=== PATIENT | female | born 1970 | race Caucasian/White ===

== ENCOUNTER 2016-04-25 02:15 | Emergency (ER) | payer OTHER ==
[~2016-04-25] VITALS: Ht 157.5 cm; Wt 95.0 kg
[~2016-04-25 02:15] MED LIST: AUG875 PO; CLOT21CR7 VAG; CLOT30CR24 TOP; CLOT45CR19 VAG; FLUC150T17 PO; GLIP5TAB13 PO; HYDR-3498 PO; IBUP400T22 PO; LISI20TA11 PO; METF1000 PO; METF500T PO; MTF1000T PO; PROM6.25 PO; ZOF8 PO
[2016-04-25 02:43] VITALS: Ht 157.5 cm; Wt 95.0 kg
--- NOTE | 2016-04-25 04:21 | ERD ---
ER Documentation Chief Complaint Date/Time DATE: 04/25/16 TIME: 04:19 Chief Complaint Blurry vision, HPI Patient is a 45-year-old female with past medical history of diabetes who presents emergency department with complaint of blurry vision. Patient states that she has had blurry vision for "3 days now". She states she occasionally sees spots. Patient denies any acute complete vision loss. Patient states that she did see an elementary reading specialist last week and was prescribed glasses. She states she has not picked up her glasses yet. Patient states "I do not want to wear glasses". Patient states that she is taking her diabetes medication daily. Patient denies any chest pain, shortness of breath, arm pain, diaphoresis, headache, loss of consciousness. Patient denies any nausea, vomiting, abdominal pain. Patient is having some suprapubic tenderness and states that "it is stabbing." Patient denies any pain with urination, frequency or hematuria. Of note patient is currently taking amoxicillin for dental infection. Of note, patient's Accu-Chek was noted to be 297 in triage. ROS All systems reviewed and are negative except as per history of present illness. Medications Home Meds Active Scripts Clotrimazole* (Clotrimazole-7*) Vaginal Cream..g., 1 APPLIC VAG HS for 7 Days, EA Prov:SHANNAN TAYLOR NP 11/04/15 Fluconazole* (Diflucan*) 150 Mg Tablet, 150 MG PO ONCE, #3 TAB Take 1 tablet PO q72 hrs x 3 doses. Prov:SHANNAN TAYLOR NP 11/04/15 Fluconazole* (Diflucan*) 150 Mg Tablet, 150 MG PO ONCE, #2 TAB Prov:MIGUEL ANGEL KEATING PA-C 11/02/15 Lisinopril* (Lisinopril*) 20 Mg Tablet, 20 MG PO DAILY, #30 TAB Prov:LEONCIO ROMANO 07/24/15 Glipizide* (Glipizide*) 5 Mg Tablet, 5 MG PO BID for 30 Days, TAB Prov:CHANCE VARELA MD 07/23/15 Metformin* (Glucophage*) 1,000 Mg Tablet, 1000 MG PO BID, #60 TAB Prov:CHANCE VARELA MD 07/23/15 Clotrimazole* (Clotrimazole-3*) Vaginal Cream..g., 1 APPLIC VAG HS for 7 Days, EA Prov:YAMILA PATEL NP 07/09/15 Clotrimazole* (Clotrimazole* AF) 1% - 30 Gm Cream.gm., 1 APPLIC TOP BID for 7 Days, TUB Prov:YAMILA PATEL NP 07/09/15 Fluconazole* (Diflucan*) 150 Mg Tablet, 150 MG PO ONCE, #1 TAB Prov:YAMILA PATEL NP 07/09/15 Metformin Hcl (Glucophage) 500 Mg Tablet, 500 MG PO BID, #30 TAB 0 Refills Prov:CHRISTOPHE GILMORE PA-C 06/21/15 Ondansetron Hcl* (Zofran* ODT) 8 mg -ODT Tab.disper, 8 MG PO Q6 Y for NAUSEA AND /OR VOMITING, #10 TAB Prov:CARLYLE CARRASCO PA-C 03/10/15 Promethazine w/Codeine* (Phenergan w/Codeine* Syrup) 5 Ml Syrup, 5-10 ML PO Q4H Y for COUGH, #200 ML Prov:CARLYLE CARRASCO PA-C 03/10/15 Amoxicillin-Clavulanate K* (Augmentin*) 875 Mg Tab, 875 MG PO BID for 10 Days, TAB Prov:CARLYLE CARRASCO PA-C 03/10/15 Hydrocodone Bit-Acetaminophen* ([place]*) 5-325 Mg Tab, 1 TAB PO Q6 Y for PAIN, # 20 TAB Prov:YAMILA PATEL NP 01/08/15 Ibuprofen* (Motrin*) 400 Mg Tab, 400 MG PO Q6H Y for PAIN AND OR ELEVATED TEMP, #30 Prov:YAMILA PATEL NP 01/08/15 Reported Medications Glipizide* (Glipizide*) 5 Mg Tablet, 5 MG PO BID, TAB 02/18/14 Lisinopril* (Lisinopril*) 20 Mg Tablet, 20 MG PO DAILY, TAB 12/20/13 Metformin Hcl* (Metformin Hcl*) 1,000 Mg Tablet, 1000 MG PO BID, TAB 07/24/13 Allergies Allergies: Coded Allergies: No Known Allergy (Verified , NONE, 06/21/15) PMhx/Soc Medical and Surgical Hx: pt denies Medical Hx, pt denies Surgical Hx History of Surgery: No Anesthesia Reaction: No Hx Neurological Disorder: No Hx Respiratory Disorders: No Hx Cardiac Disorders: Yes (HTN) Hx Psychiatric Problems: No Hx Miscellaneous Medical Probl: Yes (DM type 2) Hx Alcohol Use: No Hx Substance Use: No Hx Tobacco Use: Yes (1 PACK Q2 DAYS ) Smoking Status: Former smoker FmHx Family History: No diabetes Physical Exam Vitals Vital Signs Date Time Temp Pulse Resp B/P Pulse Ox O2 Delivery O2 Flow Rate FiO2 04/25/16 02:43 97.5 80 18 123/58 97 Physical Exam GENERAL: Well-developed, well-nourished female. Appears in no acute distress. HEAD: Normocephalic, atraumatic. EYES: Pupils are equally reactive bilaterally. EOMs grossly intact. No conjunctival erythema. Fundoscopic exam: Red light reflex present, no fundal hemorrhages. Visual acuity w/ Snellen eye chart: 20/70 OS, 20/70 OD, 20/70 OU ENT: Moist mucous membranes. No uvula deviation. No kissing tonsils. Poor dentition. NECK: Supple. No meningismus. Normal range of motion of the neck. LUNG: Clear to auscultation bilaterally. No rhonchi, wheezing, rales or coarse breath sounds. HEART: Regular rate and rhythm. No murmurs, rubs or gallops. ABDOMEN: No scars, ecchymosis or rashes noted. Soft, nontender, and nondistended. Positive bowel sounds in all four quadrants. No rebound tenderness , no guarding. (-) McBurney's point tenderness. No CVA tenderness. BACK: No midline tenderness. EXTREMITIES: Equal pulses bilaterally. No peripheral clubbing, cyanosis or edema. No unilateral leg swelling. NEUROLOGIC: Alert and oriented x3, cooperative. Mood and affect appropriate to situation. Cranial nerves II through XII are grossly intact. Normal speech. Motor exam: 5/5 strength in upper and lower extremities. Sensory exam: Sensation intact to light touch on all four extremities. Normal speech. Steady gait. SKIN: Normal color. Warm and dry. No rashes or lesions. Results 24 hrs Laboratory Tests Test 04/25/16 02:55 04/25/16 04:28 Bedside Glucose 296mg/dL Bedside Urine Blood Negative Bedside Urine Glucose (UA) 0.50% Bedside Urine Ketones (LAB) Negative Bedside Urine Leukocyte Esterase (L Negative Bedside Urine Nitrite (LAB) Negative Bedside Urine Protein (LAB) Negative Bedside Urine pH (LAB) 6.0 Procedures/MDM MEDICAL DECISION MAKING: Patient is a 45 year old female who presents with blurry vision and suprapubic pain. Patient stated that she recently saw an elementary reading specialist and was prescribed eye glasses, however she does not wish to wear vision correction. Vital signs were reviewed. Patient is afebrile. Patient was not hypoxic. Physical exam findings were negative. Accucheck was 297. Urine was negative. Urine dip was negative for infection or hematuria. At this time, the presentation it most consistent with blurry vision secondary to refractive error. Low suspicion for UTI, pyelonephritis, DKA, hyperosmolar hyperglycemic state, glaucoma, CVA, cataracts. Unable able to rule out diabetic retinopathy. Patient needs to follow up an mail clerk on a regular basis. PRESCRIPTION: DISCHARGE: At this time, patient is stable for discharge and outpatient management. I have instructed the patient to follow-up with his/her primary care physician in 1-2 days. I had a discussion with the patient about the importance of using glasses for vision correction and seeing a mail clerk on regular basis due to diabetes. Glucose control also discussed with the patient. Patient was advised to follow up with her PCP was better management of her blood sugars. I have instructed the patient to promptly return to the ER for any new or worsening symptoms including increased pain, fever, nausea, vomiting, weakness or LOC. The patient and/or family expressed understanding of and agreement with this plan. All questions were answered. Home care instructions were provided. Patients random blood sugar level was elevated (>140), but appears stable without evidence of DKA or end organ failure. I had discussion with the patient about the risk of diabetes. I have advised the patient to follow up with his/her primary care physician for outpatient monitoring and treatment for elevated blood sugar levels in 2-3 days. I have instructed the patient to return to the ER for any new or worsening symptoms including chest pain, shortness of breath, headache, confusion, abdominal pain, nausea, vomiting, weakness or LOC. Departure Diagnosis: Primary Impression: Blurry vision Additional Impressions: Hyperglycemia Refraction error Suprapubic pain Condition: Stable Patient Instructions: Hyperglycemia (High Blood Sugar) Additional Instructions: Call your primary care doctor TOMORROW for an appointment during the next 1-2 days.See the doctor sooner or return here if your condition worsens before your appointment time. Patient was advised to follow-up with her primary care physician for better management of her diabetes. Patient may need a medication change. Patient advised to continue medication as prescribed until seen by primary care physician. She has a prescription for eyeglasses. Patient was advised to obtain her glasses as soon as possible to help with her blurry vision. CHARI HELM PA-C Apr 25, 2016 04:21
[2016-04-25 04:25] LABS: URINE BLOOD (Dip) POC Negative (NEGATIVE)
== END 2016-04-25 05:01 | disposition home or self-care (01) ==
LOC: FTE 02:15
DX: H53.8 Other visual disturbances (principal); E11.65 Type 2 diabetes mellitus with hyperglycemia; H52.6 Other disorders of refraction; R10.30 Lower abdominal pain, unspecified; I10 Essential (primary) hypertension; Z79.84 Long term (current) use of oral hypoglycemic drugs; Z87.891 Personal history of nicotine dependence
CPT/HCPCS: 81003; 82962; Z7502; 99282

== ENCOUNTER 2016-10-23 20:13 | Emergency (ER) | payer OTHER ==
[~2016-10-23] VITALS: Ht 157.5 cm; Wt 93.0 kg
[2016-10-23 20:25] VITALS: Ht 157.5 cm; Wt 93.0 kg
[2016-10-23] MEDS ORDERED: SOD CHLORIDE 0.9% 1,000 ML IV STA (21:09)
--- NOTE | 2016-10-23 21:22 | ERD ---
ER Documentation Chief Complaint Date/Time DATE: 10/23/16 TIME: 21:13 Chief Complaint blurry vision today, Hx: DM. BS: 323 HPI 46-year-old female with a history of type 2 diabetes, and hypertension presents the emergency department for complaints of bilateral blurred vision, body aches , dizziness which she explains as lightheadedness, and feeling off balance since today. 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 She states that she has experienced similar symptoms prior due to her elevated blood glucose level. She states she does not have a primary care physician but goes to [facility] emergency department for refills of her Metformin and blood pressure medication. She states she has not been taking her blood pressure medication regularly. She denies any fever, chills, nausea, vomiting, diarrhea, abdominal pain, chest pain, or shortness of breath. Patient also notes intermittent right wrist pain 1 month. 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 She has not attempted to treat her symptoms as far with any medication. She currently rates her pain as a intermittent throbbing, 6 out of 10 right wrist pain which is worse with movement. She denies any numbness, tingling, or weakness. ROS All systems reviewed and are negative except as per history of present illness. Medications Home Meds Active Scripts Naproxen* (Naprosyn*) 500 Mg Tablet, 500 MG PO BID Y for PAIN AND/OR INFLAMMATION, #30 TAB Prov:ABEL SHAFER PA-C 10/23/16 Clotrimazole* (Clotrimazole-7*) Vaginal Cream..g., 1 APPLIC VAG HS for 7 Days, EA Prov:SHANNAN TAYLOR NP 11/04/15 Fluconazole* (Diflucan*) 150 Mg Tablet, 150 MG PO ONCE, #3 TAB Take 1 tablet PO q72 hrs x 3 doses. Prov:SHANNAN TAYLOR NP 11/04/15 Fluconazole* (Diflucan*) 150 Mg Tablet, 150 MG PO ONCE, #2 TAB Prov:MIGUEL ANGEL KEATING PA-C 11/02/15 Lisinopril* (Lisinopril*) 20 Mg Tablet, 20 MG PO DAILY, #30 TAB Prov:LEONCIO ROMANO/19/16 Glipizide* (Glipizide*) 5 Mg Tablet, 5 MG PO BID for 30 Days, TAB Prov:CHANCE VARELA MD 07/23/15 Metformin* (Glucophage*) 1,000 Mg Tablet, 1000 MG PO BID, #60 TAB Prov:CHANCE VARELA MD 07/23/15 Clotrimazole* (Clotrimazole-3*) Vaginal Cream..g., 1 APPLIC VAG HS for 7 Days, EA Prov:YAMILA PATEL NP 07/09/15 Clotrimazole* (Clotrimazole* AF) 1% - 30 Gm Cream.gm., 1 APPLIC TOP BID for 7 Days, TUB Prov:YAMILA PATEL NP 07/09/15 Fluconazole* (Diflucan*) 150 Mg Tablet, 150 MG PO ONCE, #1 TAB Prov:YAMILA PATEL NP 07/09/15 Metformin Hcl (Glucophage) 500 Mg Tablet, 500 MG PO BID, #30 TAB 0 Refills Prov:CHRISTOPHE GILMORE PA-C 06/21/15 Ondansetron Hcl* (Zofran* ODT) 8 mg -ODT Tab.disper, 8 MG PO Q6 Y for NAUSEA AND /OR VOMITING, #10 TAB Prov:CARLYLE CARRASCO PA-C 03/10/15 Promethazine w/Codeine* (Phenergan w/Codeine* Syrup) 5 Ml Syrup, 5-10 ML PO Q4H Y for COUGH, #200 ML Prov:CARLYLE CARRASCO PA-C 03/10/15 Amoxicillin-Clavulanate K* (Augmentin*) 875 Mg Tab, 875 MG PO BID for 10 Days, TAB Prov:CARLYLE CARRASCO PA-C 03/10/15 Hydrocodone Bit-Acetaminophen* ([place]*) 5-325 Mg Tab, 1 TAB PO Q6 Y for PAIN, # 20 TAB Prov:YAMILA PATEL NP 01/08/15 Ibuprofen* (Motrin*) 400 Mg Tab, 400 MG PO Q6H Y for PAIN AND OR ELEVATED TEMP, #30 Prov:YAMILA PATEL CLEMENT TCampbell FIELDS 01/08/15 Reported Medications Glipizide* (Glipizide*) 5 Mg Tablet, 5 MG PO BID, TAB 02/18/14 Lisinopril* (Lisinopril*) 20 Mg Tablet, 20 MG PO DAILY, TAB 12/20/13 Metformin Hcl* (Metformin Hcl*) 1,000 Mg Tablet, 1000 MG PO BID, TAB 07/24/13 Allergies Allergies: Coded Allergies: No Known Allergy (Verified , NONE, 06/21/15) PMhx/Soc History of Surgery: No Anesthesia Reaction: No Hx Neurological Disorder: No Hx Respiratory Disorders: No Hx Cardiac Disorders: Yes (HTN) Hx Psychiatric Problems: No Hx Miscellaneous Medical Probl: Yes (DM type 2) Hx Alcohol Use: No Hx Substance Use: No Hx Tobacco Use: Yes (1 PACK Q2 DAYS ) Smoking Status: Smoker,current status unk Physical Exam Vitals Vital Signs Date Time Temp Pulse Resp B/P Pulse Ox O2 Delivery O2 Flow Rate FiO2 10/23/16 20:25 97.2 90 20 130/84 95 Physical Exam Const: Well-developed, well-nourished, in mild distress Head: Atraumatic Eyes: Normal Conjunctiva, no discharge or evidence of trauma. EOMI, PERRLA ENT: Normal External Ears, Nose and Mouth. Posterior pharynx without erythema or swelling. Neck: Full range of motion..~ No meningismus. Resp: Clear to auscultation bilaterally Cardio: Regular rate and rhythm, no murmurs Abd: Soft, non tender, non distended. Normal bowel sounds Skin: No petechiae or rashes Back: No midline or flank tenderness Ext: Right wristp-no erythema, ecchymosis, or surface trauma. Patient has full range of motion at right wrist and elbow. Mild diffuse tenderness of the wrist. Negative scaphoid tenderness. Patient with good blood perfusion. Brisk capillary refill. Radial, median, ulnar motor function intact. 2 point discrimination intact on radial and ulnar aspect of all 5 fingers. Patient with good investigative assistant strength however notes pain at wrist. cyanosis, or edema Neur: Awake and alert. Cranial nerves II through XII intact. Finger to nose intact. No pronator drift. EOMI. PERRLA. Psych: Normal Mood and Affect Result Diagram: 10/23/16212310/23/162123 Results 24 hrs Laboratory Tests Test 10/23/16 20:23 10/23/16 21:24 10/23/16 21:58 10/23/16 22:43 Bedside Glucose 323mg/dL 242mg/dL 233mg/dL White Blood Count 7.910^3/ul Red Blood Count 4.8110^6/ul Hemoglobin 13.9g/dl Hematocrit 39.6% Mean Corpuscular Volume 82.3fl Mean Corpuscular Hemoglobin 28.9pg Mean Corpuscular Hemoglobin Concent 35.1g/dl Red Cell Distribution Width 12.1% Platelet Count 94178^3/UL Mean Platelet Volume 11.6fl Neutrophils % 52.4% Lymphocytes % 37.8% Monocytes % 7.1% Eosinophils % 1.8% Basophils % 0.5% Nucleated Red Blood Cells % 0.0/100WBC Neutrophils # (Manual) 410^3/ul Lymphocytes # 3.010^3/ul Monocytes # 0.610^3/ul Eosinophils # 0.110^3/ul Basophils # 0.010^3/ul Nucleated Red Blood Cells # 0.010^3/ul Urine Color RED Urine Clarity CLOUDY Urine pH 6.0 Urine Specific [place] 1.041 Urine Ketones TRACEmg/dL Urine Nitrite NEGATIVEmg/dL Urine Bilirubin NEGATIVEmg/dL Urine Urobilinogen NEGATIVEmg/dL Urine Leukocyte Esterase NEGATIVELeu/ul Urine Microscopic RBC > 182/HPF Urine Microscopic WBC 28/HPF Urine Bacteria FEW/HPF Urine Hemoglobin 3+mg/dL Urine Glucose 3+mg/dL Urine Total Protein 2+mg/dl Sodium Level 135mmol/L Potassium Level 3.8mmol/L Chloride Level 96mmol/L Carbon Dioxide Level 26mmol/L Anion Gap 17 Blood Urea Nitrogen 15mg/dl Creatinine 0.64mg/dl Glucose Level 272mg/dl Calcium Level 9.2mg/dl Phosphorus Level 4.9mg/dl Magnesium Level 1.5mg/dl Total Bilirubin 0.2mg/dl Direct Bilirubin 0.00mg/dl Indirect Bilirubin 0.2mg/dl Aspartate Amino Transf (AST/SGOT) 26IU/L Alanine Aminotransferase (ALT/SGPT) 46IU/L Alkaline Phosphatase 105IU/L Troponin I < 0.012ng/ml Total Protein 7.4g/dl Albumin 4.3g/dl Globulin 3.10g/dl Albumin/Globulin Ratio 1.38 Lipase 110U/L Test 10/23/16 23:58 Bedside Glucose 209mg/dL Current Medications Medications (Trade) Dose Ordered Sig/Chava Route PRN Reason Start Time Stop Time Status Last Admin Dose Admin Sodium Chloride 1,000 ml @ 1,000 mls/hr Q1H STAT IV 10/23/16 21:09 10/23/16 22:08 DC 10/23/16 21:23 Sodium Chloride (NS) 1,000 ml @ 1,000 mls/hr Q1H ONCE IV 10/23/16 22:30 10/23/16 23:29 DC 10/23/16 22:25 Procedures/MDM This is a 46-year-old female with history of hypertension and type 2 diabetes who presents the emergency department for complaints of bilateral blurred vision , body aches, lightheadedness and feeling off balance since today. Patient states she is compliant with her metformin but does not take her blood pressure medication. Upon arrival patient's blood glucose was measured at 323. Patient reports similar prior symptoms with elevated blood glucose. Upon arrival, patient well-appearing, and in no acute distress. Vital signs reviewed. Patient afebrile, not tachycardic, normotensive and non-hypoxic. She states she does not have a primary care physician but instead goes to [facility] emergency department to retrieve refills of her diabetes and blood pressure medication. 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 Physical exam without any evidence of swelling, trauma, increased warmth, decreased range of motion, or neurovascular compromise. 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 I will be prescribing the patient with anti-inflammatories as well as placing her in a Velcro wrist splint for comfort. Patient to follow-up with patient access specialist and occupational therapy if symptoms persist. Resources provided. Physical exam overall unremarkable CBC showed no evidence of systemic infection or severe anemia. CMP showed no evidence of electrolyte abnormalities, severe acidosis, alkalosis , renal failure, or liver disease. Bicarb within normal limits. Lipase showed no evidence of acute pancreatitis. Magnesium and phosphorus within normal limits. Serum ketones negative. UA showed evidence of hematuria, bacteremia, leukocyte esterase, and trace ketones. Patient will receive antibiotics for suspected urinary tract infection. Urine test was negative. Troponin negative EKG: Interpreted by Dr. Cricket Gallegos Rate/Rhythm: Normal Sinus Rhythm QRS, ST, T-waves: No changes consistent w/ acute ischemia Impression: No evidence of ischemia or arrhythmia Patient received a bolus of fluids immediately after being seen in the emergency department. Upon recheck of her blood glucose fingerstick measured 242. Patient received an additional bolus of fluids. Prior to arrival patient' s blood sugar retract and measured at 209. Patient reported feeling significantly better after administration of the IV fluids. She stated she felt safe for discharge. At this time hospital admission is not warranted as patient does not appear to be in diabetic ketoacidosis and blood sugar was well controlled with fluids while in the emergency department. Patient overall well-appearing and reported improvement of symptoms after receiving 2 L of fluids. Patient neurologically intact. Low suspicion for significant electrolyte imbalance, ketoacidosis, acute coronary syndrome, stroke, severe systemic illness, or sepsis. Low suspicion for acute coronary syndrome, dysrhythmia, or stroke. Based on patient's history of present illness and physical examination the decision was made to discharge. The patient was re-evaluated after ED treatment and stabilizing measures, and symptoms have improved. There is no evidence of life threatening injuries or illnesses at this time. On re-examination, patient resting in no distress, stable vital signs, reports feeling better and safe for discharge with outpatient follow up with PMD in 1-2 days. Patient given return precautions. ABEL SHAFER PA-C Oct 23, 2016 21:22
[2016-10-23 21:34] LABS: BASOPHILS % 0.5 % (0.0-2.0); EOSINOPHILS # 0.1 10^3/ul (0.0-0.5); EOSINOPHILS % 1.8 % (0.0-7.0); HEMATOCRIT 39.6 % (37.0-47.0); HEMOGLOBIN 13.9 g/dl (12.0-16.0); LYMPHOCYTES % 37.8 % (15.0-51.0); MEAN CORPUSCULAR HEMOGLOBIN 28.9 pg (29.0-33.0); MEAN CORPUSCULAR HGB CONC 35.1 g/dl (32.0-37.0); MEAN CORPUSCULAR VOLUME 82.3 fl (82.0-101.0); MEAN PLATELET VOLUME 11.6 fl (7.4-10.4); MONOCYTE # 0.6 10^3/ul (0.3-0.9); MONOCYTES % 7.1 % (0.0-11.0); NEUTROPHILS % 52.4 % (39.0-77.0); PLATELET COUNT 198 10^3/UL (140-415); RED BLOOD COUNT 4.81 10^6/ul (4.20-5.40); RED CELL DISTRIBUTION WIDTH 12.1 % (11.5-14.5); WHITE BLOOD COUNT 7.9 10^3/ul (4.8-10.8)
[2016-10-23 22:00] LABS: ALANINE AMINOTRANSFERASE 46 IU/L (13-69); ALBUMIN 4.3 g/dl (3.3-4.9); ALBUMIN/GLOBULIN RATIO 1.38; ALKALINE PHOSPHATASE 105 IU/L (42-121); ANION GAP 17 (8-16); ASPARTATE AMINO TRANSFERASE 26 IU/L (15-46); BILIRUBIN,INDIRECT 0.2 mg/dl (0-1.1); BILIRUBIN,TOTAL 0.2 mg/dl (0.2-1.3); BLOOD UREA NITROGEN 15 mg/dl (7-20); CALCIUM 9.2 mg/dl (8.4-10.2); CARBON DIOXIDE 26 mmol/L (21-31); CHLORIDE 96 mmol/L (97-110); CREATININE 0.64 mg/dl (0.44-1.00); GLUCOSE 272 mg/dl (70-220); MAGNESIUM 1.5 mg/dl (1.7-2.5); PHOSPHORUS 4.9 mg/dl (2.5-4.9); POTASSIUM 3.8 mmol/L (3.5-5.1); SODIUM 135 mmol/L (135-144); TOTAL PROTEIN 7.4 g/dl (6.1-8.1)
[2016-10-23 22:06] LABS: ADD UMIC YES; UR ASCORBIC ACID NEGATIVE (NEGATIVE); UR BACTERIA FEW /HPF (NONE SEEN); UR BILIRUBIN (Dip) NEGATIVE (NEGATIVE); UR BLOOD (Dip) 3+ mg/dL (NEGATIVE); UR CLARITY CLOUDY (CLEAR); UR COLOR RED (YELLOW); UR GLUCOSE (Dip) 3+ mg/dL (NEGATIVE); UR KETONES (Dip) TRACE mg/dL (NEGATIVE); UR LEUKOCYTE ESTERASE (Dip) NEGATIVE Leu/ul (NEGATIVE); UR NITRITE (Dip) NEGATIVE (NEGATIVE); UR RBC > 182 /HPF (0-5); UR SPECIFIC GRAVITY (Dip) 1.041 (1.003-1.030); UR TOTAL PROTEIN (Dip) 2+ mg/dl (NEGATIVE); UR UROBILINOGEN (Dip) NEGATIVE (NEGATIVE)
[2016-10-23 22:26] LABS: TROPONIN-I < 0.012 ng/ml (0.00-0.12)
[2016-10-23] MEDS ORDERED: SOD CHLORIDE 0.9% 1,000 ML IV ONE (22:30)
[2016-10-23] MEDS ORDERED: NAPR-260 PO (23:58)
[2016-10-24] MEDS ORDERED: CEPH-443 PO (00:15)
[2016-10-24 00:30] VITALS: BP 127/81; PULSE 73; RESP 20; TEMP 98.6
== END 2016-10-24 00:25 | disposition home or self-care (01) ==
LOC: FTE 20:13
DX: S63.91XA Sprain of unspecified part of right wrist and hand, initial encounter (principal); I10 Essential (primary) hypertension; F17.210 Nicotine dependence, cigarettes, uncomplicated; E11.65 Type 2 diabetes mellitus with hyperglycemia; R52 Pain, unspecified; X50.3XXA Overexertion from repetitive movements, initial encounter; Y92.89 Other specified places as the place of occurrence of the external cause; Z79.84 Long term (current) use of oral hypoglycemic drugs
CPT/HCPCS: 29125; 36415; 80053; 81001; 82962; 83690; 83735; 84100; 84484; 85025; 93005; J7030; Z7502

== ENCOUNTER 2017-06-30 21:56 | Emergency (ER) | END 2017-07-01 03:10 | disposition home or self-care (01) ==

== ENCOUNTER 2017-07-01 21:11 | Emergency (ER) | END 2017-07-02 02:21 | disposition home or self-care (01) ==

== ENCOUNTER 2017-12-17 21:37 | Emergency (ER) | END 2017-12-17 23:58 | disposition home or self-care (01) ==

== ENCOUNTER 2018-02-16 10:13 | Emergency (ER) | END 2018-02-16 14:07 | disposition home or self-care (01) ==

== ENCOUNTER 2018-04-28 17:33 | Emergency (ER) | payer OTHER ==
[~2018-04-28] VITALS: Ht 157.5 cm; Wt 84.9 kg
[~2018-04-28 17:33] MED LIST changes: +CEPH-443 PO; +FLUC150T PO; -FLUC150T17 PO; +IBUP-1542 PO; +IBUP-1561 PO; -IBUP400T22 PO; +KET2CR15 TOP; +LISI-471 PO; -LISI20TA11 PO; +METF-849 PO; -METF1000 PO; +METF100010 PO; +METR70GE15 VAG; +MICO24CM3 VAG; +NAPR-985 PO; +PHEN-537 PO; +PHEN-538 PO; +SULF1TAB31 PO
[2018-04-28 17:39] VITALS: Ht 157.5 cm; Wt 84.9 kg
[2018-04-28] MEDS ORDERED: metFORMIN 500 MG TAB PO ONE (22:30)
--- NOTE | 2018-04-28 22:36 | ERD ---
ER Documentation Chief Complaint Chief Complaint HYPERGLYCEMIA, FEELING ACHY HPI This is a 47-year-old female with a past medical history of hypertension and diabetes who is presenting for a medication refill. The patient reports running out of her diabetes and high blood pressure medicines approximately 2 weeks ago. According to the chart, the patient takes metformin, glipizide and lisinopril. Since not being on her medications, the patient reports waxing and waning blurry vision that is resolved when putting on her glasses. The patient is wearing her glasses and does not have any blurry vision at this time. The patient does not have any focal deficits. She does not have any weakness or numbness or tingling to the face or extremities. She does not feel lightheaded or dizzy. She denies any headache. She denies double vision. She denies any photophobia or phonophobia. The patient also reports occasionally feeling achy over the last 2 weeks. That said, she denies any fever or chills. She denies cough or congestion. She does not feel sick. She does endorse a transient episode of shoulder soreness earlier today, exacerbated by movement, which has since resolved. The patient also reports occasional episodes of abdominal cramping which has also resolved. The patient reports difficulty getting in to see her primary care doctor, but she is planning to see him next week. ROS All systems reviewed and are negative except as per history of present illness. Medications Home Meds Active Scripts Metformin* (Glucophage*) 500 Mg Tab, 500 MG PO BID, #60 TAB Prov:JOSEPH SPAULDING PA-C 02/16/18 Metronidazole* (Metrogel* Vaginal) 0.75% -70 Gram Gel.w.appl, 1 APPFUL VAG HS, #7 TUB Prov:JOSEPH SPAULDING PA-C 02/16/18 Fluconazole* (Diflucan*) 150 Mg Tablet, 150 MG PO ONCE, #1 TAB Prov:JOSEPH SPAULDING PA-C 02/16/18 Metformin* (Glucophage*) 1,000 Mg Tablet, 1000 MG PO BID, #60 TAB Prov:CHANCE VARELA MD 12/17/17 Miconazole Nitrate* (Monistat 3*) 24 Gm Cmb.pf.crm, 1 APPFUL VAG HS, #1 TUB X 3 Prov:CHANCE VARELA MD 12/17/17 Ibuprofen* (Motrin*) 600 Mg Tab, 600 MG PO Q6H PRN for PAIN AND OR ELEVATED TEMP, #30 TAB Prov:CHANCE VARELA MD 12/17/17 Ibuprofen* (Motrin*) 600 Mg Tab, 600 MG PO Q6, #30 TAB Prov:WESLEY,KAREN 07/01/17 Cephalexin* (Keflex*) 500 Mg Capsule, 500 MG PO QID for 10 Days, CAP Prov:WESLEY,KAREN 07/01/17 Ketoconazole* (Ketoconazole* 2% Cream (15gm)) 1 Applic Cr, 1 APPLIC TOP BID for 14 Days, TUB Prov:WESLEY,KAREN 07/01/17 Ibuprofen* (Motrin*) 600 Mg Tab, 600 MG PO Q6H PRN for PAIN AND OR ELEVATED TEMP, #20 TAB Prov:LOUIS TOBIN MD 07/01/17 Phenazopyridine Hcl* (Pyridium*) 200 Mg Tab, 200 MG PO TID PRN for URINARY PAIN, #6 TAB Prov:LOUIS TOBIN MD 07/01/17 Sulfamethoxazole/Trimethoprim* (Bactrim Ds* Tablet) 1 Each Tablet, 1 TAB PO BID, #14 TAB Prov:LOUIS TBOIN MD 07/01/17 Lisinopril* (Lisinopril*) 20 Mg Tablet, 20 MG PO DAILY, #30 TAB Prov:MAGO CARIAS 06/02/17 Miconazole Nitrate* (Monistat 3*) 24 Gm Cmb.pf.crm, 1 APPFUL VAG HS for 3 Days, TUB X 3 Prov:MAGO CARIAS 06/02/17 Phenazopyridine Hcl* (Pyridium*) 100 Mg Tab, 100 MG PO TID PRN for URINARY PAIN, #9 TAB Prov:ARETHAMAGO PHILLIPS C 06/02/17 Ibuprofen* (Motrin*) 600 Mg Tab, 600 MG PO Q6, #30 TAB Prov:ARETHAMAGO PHILLIPS C 06/02/17 Cephalexin* (Keflex*) 500 Mg Capsule, 500 MG PO QID for 7 Days, CAP Prov:ABEL SHAFER PA-C 10/24/16 Naproxen* (Naprosyn*) 500 Mg Tablet, 500 MG PO BID PRN for PAIN AND/OR INFLAM MATION, #30 TAB Prov:ABEL SHAFER PA-C 10/23/16 Clotrimazole* (Clotrimazole-7*) Vaginal Cream..g., 1 APPLIC VAG HS for 7 Days, EA Prov:SHANNAN TAYLOR NP 11/04/15 Fluconazole* (Diflucan*) 150 Mg Tablet, 150 MG PO ONCE, #3 TAB Take 1 tablet PO q72 hrs x 3 doses. Prov:SHANNAN TAYLOR NP 11/04/15 Fluconazole* (Diflucan*) 150 Mg Tablet, 150 MG PO ONCE, #2 TAB Prov:MIGUEL ANGEL KEATING PA-C 11/02/15 Lisinopril* (Lisinopril*) 20 Mg Tablet, 20 MG PO DAILY, #30 TAB Prov:LEONCIO ROMANO 07/24/15 Glipizide* (Glipizide*) 5 Mg Tablet, 5 MG PO BID for 30 Days, TAB Prov:CHANCE VARELA MD 07/23/15 Metformin* (Glucophage*) 1,000 Mg Tablet, 1000 MG PO BID, #60 TAB Prov:CHANCE VARELA MD 07/23/15 Clotrimazole* (Clotrimazole-3*) Vaginal Cream..g., 1 APPLIC VAG HS for 7 Days, EA Prov:YAMILA PATEL NP 07/09/15 Clotrimazole* (Clotrimazole* AF) 1% - 30 Gm Cream.gm., 1 APPLIC TOP BID for 7 Days, TUB Prov:YAMILA PATEL NP 07/09/15 Fluconazole* (Diflucan*) 150 Mg Tablet, 150 MG PO ONCE, #1 TAB Prov:YAMILA PATEL NP 07/09/15 Metformin Hcl (Glucophage) 500 Mg Tablet, 500 MG PO BID, #30 TAB 0 Refills Prov:CHRISTOPHE GILMORE PA-C 06/21/15 Ondansetron Hcl* (Zofran* ODT) 8 mg -ODT Tab.disper, 8 MG PO Q6 PRN for NAUSEA AND/OR VOMITING, #10 TAB Prov:CARLYLE CARRASCOC 03/10/15 Promethazine w/Codeine* (Phenergan w/Codeine* Syrup) 5 Ml Syrup, 5-10 ML PO Q4H PRN for COUGH, #200 ML Prov:CARLYLE CARRASCO PA-C 03/10/15 Amoxicillin-Clavulanate K* (Augmentin*) 875 Mg Tab, 875 MG PO BID for 10 Days, TAB Prov:CARLYLE CARRASCO PA-C 03/10/15 Hydrocodone Bit-Acetaminophen* (Owendale*) 5-325 Mg Tab, 1 TAB PO Q6 PRN for PAIN, #20 TAB Prov:YAMILA PATEL NP 01/08/15 Ibuprofen* (Motrin*) 400 Mg Tab, 400 MG PO Q6H PRN for PAIN AND OR ELEVATED TEMP, #30 Prov:YAMILA PATEL NP 01/08/15 Reported Medications Glipizide* (Glipizide*) 5 Mg Tablet, 5 MG PO BID, TAB 02/18/14 Lisinopril* (Lisinopril*) 20 Mg Tablet, 20 MG PO DAILY, TAB 12/20/13 Metformin Hcl* (Metformin Hcl*) 1,000 Mg Tablet, 1000 MG PO BID, TAB 07/24/13 Allergies Allergies: Coded Allergies: No Known Allergy (Verified , NONE, 02/16/18) PMhx/Soc History of Surgery: No Anesthesia Reaction: No Hx Neurological Disorder: No Hx Respiratory Disorders: No Hx Cardiac Disorders: No (HTN) Hx Psychiatric Problems: No Hx Miscellaneous Medical Probl: Yes (DM type 2) Hx Alcohol Use: No Hx Substance Use: No Hx Tobacco Use: Yes (1 PACK Q2 DAYS, quit) Smoking Status: Never smoker FmHx Family History: diabetes Physical Exam Vitals Vital Signs Date Temp Pulse Resp B/P (MAP) Pulse Ox O2 O2 Flow FiO2 Time Delivery Rate 04/28/18 97.3 72 18 148/91 97 Room Air 21:49 (110) 04/28/18 97.3 83 18 156/81 97 17:39 (106) Physical Exam Const: No apparent distress, well-developed, well-nourished Head: Normocephalic, Atraumatic Eyes: Normal Conjunctiva. Extraocular movements intact. Pupils equal, round and reactive to light visual lopes intact. ENT: Normal External Ears, Nose and Mouth. Neck: Full range of motion. No meningismus. Resp: Clear to auscultation bilaterally, No wheezes, rales or rhonchi Cardio: Regular rate and rhythm. No murmurs, rubs or gallops Abd: Soft, non tender, non distended. Normal bowel sounds Skin: No petechiae or rashes Back: No midline tenderness. No CVA tenderness Ext: No cyanosis, or edema Neur: Awake and alert, oriented 4. Cranial nerves intact. No facial droop. Normal strength, sensation and coordination. Psych: Normal Mood and Affect. Results 24 hrs Laboratory Tests Test 04/28/18 17:44 Bedside Glucose 301 mg/dL [facility] The patient's presentation warrants further investigation. Previous medical records, if available, were reviewed. LABS Laboratory testing reviewed by me. Glucose: 301 EKG EKG read by me: Rate/Rhythm: Mild sinus bradycardia at 58 bpm. Intervals: Normal [place]: Normal Impression: No evidence of acute ischemia. Sinus bradycardia. IMAGING Imaging and Radiology interpretation reviewed. CXR 1V Interpreted by me Soft Tissue: No acute abnormalities Bones: No acute abnormalities Mediastinum/Cardiac Silhouette: Unremarkable. No widened mediastinum. Lungs: No acute abnormalities. Normal pulmonary vasculature. No pneumothorax. No pulmonary edema. Clear costal diaphragmatic angles. No pleural effusions. No opacity or consolidations concerning for pneumonia. TREATMENT/DISPOSITION The patient has a reassuring physical exam. The patient reports blurry vision that is completely corrected by her glasses. The patient may benefit from outpatient ophthalmology evaluation, but I have low suspicion for an emergent etiology. The patient's symptoms could also be attributed to noncompliance with her diabetes medication. The patient has no focal deficits. The neurologic exam is reassuring. I have decreased suspicion for cerebral ischemia. There was no trauma or injury. There is no personal or family history of cerebral aneurysm. I have decreased suspicion for SAH or other ICH. I have low suspicion for temporal arteritis, cavernous venous thrombosis, subdural hematoma, epidural hematoma, meningitis. I do not suspect presyncope as the etiology of her symptoms today. The patient is not clinically orthostatic. The patient is not dizzy. I have decreased suspicion for vertigo. The patient has no signs of emergent or symptomatic anemia. I have low suspicion for emergent electrolyte or metabolic emergencies. The patient's blood sugar was checked and found to be at 301. I have low suspicion for a diabetic emergency. The patient does not have symptoms concerning for DKA. I have decrease suspicion for a thyroid disorder. The patient is not toxic appearing. I have decreased suspicion for an infectious etiology of symptoms. The patient's EKG is reassuring. I have low suspicion for acute coronary syndrome. I do not see evidence of any emergent cardiac arrhythmia, which includes but is not limited to heart block, Brugada syndrome or WPW. The patient does have a mild bradycardia on the EKG, but she was not bradycardic on exam. The patient did not have any change of symptoms. She was observed in the emergency department with a stable heart rate. I doubt this to be the etiology of her symptoms today. The patient has no heart murmurs or rales. There is no clinical evidence of CHF. The patient does not endorse any chest or pleuritic pain. The history is negative for bleeding or clotting disorders. The patient has not been involved in any recent prolonged trips or surgeries or hospitalizations. The patient has no calf tenderness or swelling. I have decreased suspicion for PE as the etiology of symptoms. The patient was provided a dose of metformin this evening as she has not taken it. She will be provided a prescription for metformin and lisinopril. Given that glipizide can lead to refractory hypoglycemia, I do not feel that it would be appropriate to have this prescribed from the emergency department. The patient understands that I will only be providing a 2-week prescription. The patient needs to follow-up with her primary doctor for a refill. No emergent diagnoses were identified. At this time, I feel that the patient stable for discharge. The patient was instructed to follow-up with a primary care physician in 1-3 days. The patient will be given strict precautions with which to return to the emergency department. Prescriptions: Metformin, lisinopril The patient's blood pressure was elevated at greater than 120/80 while in the emergency department. The patient was otherwise stable with no evidence of hypertensive urgency or emergency. The patient does not require admission for blood pressure control. I have discussed with the patient the risks of hypertension. I have instructed the patient to return to the ER for any new or worsening symptoms including chest pain, shortness of breath, headache, blurred vision, confusion, nausea, vomiting or LOC. I have advised the patient to follow up with the primary care physician for outpatient monitoring and treatment for hypertension in 1-3 days. Disclaimer: Inadvertent spelling and grammatical errors are likely due to [employer]/dictation software use and do not reflect on the overall quality of patient care. Note that the electronic time recorded on this note does not necessarily reflect the actual time of the patient encounter. Departure Diagnosis: Primary Impression: Hyperglycemia Additional Impressions: Hypertension Hypertension type: unspecified Qualified Codes: I10 - Essential (primary) hypertension Noncompliance with medications Condition: Stable Patient Instructions: Hyperglycemia (High Blood Sugar), High Blood Pressure (Hypertension) Additional Instructions: Thank you for for coming to [facility] for your care today. Please ask your nurse or provider if you have questions about your care today and do not leave until all your questions have been answered. Please use any medications given as directed and follow-up with your doctor (or the doctor you were referred to) in the next 1-3 days. If you do not have a primary care doctor you may follow up at the [facility] or [facility] (listed below). You may also use motrin and tylenol as needed for fever and/or pain unless instructed otherwise by your provider or nurse. Indications for more urgent follow-up have been discussed, but you may return to the Emergency Department at ANY time for any worrisome or worsening symptoms. If you have abdominal pain, please know that no test or exam you received is perfect and you should follow up within 8 hours for continued pain. If you had any imaging studies today, such as an X-Ray or CT Scan, these studies will be reviewed later by a radiologist. You will be called if there are important findings that were not identified today, so make sure the contact information you provided at registration is correct. If you received any narcotic pain control medicine today, such as Vicodin, Morphine or Dilaudid, your coordination and judgment may be affected for a number of hours. Please do not drive or operate heavy machinery, and you may want someone to assist you at home. If you were given a prescription for narcotic medication, be aware that it is very addictive- use sparingly and only if necessary. PLEASE SEEK FURTHER EVALUATION AND MANAGEMENT AT YOUR DOCTORS OFFICE WITHIN THE NEXT 1-3 DAYS. IT IS YOUR RESPONSIBILITY TO MAKE AN APPOINTMENT FOR FOLOW-UP CARE. IF YOU HAVE A PRIMARY DOCTOR, PLEASE CALL THEIR OFFICE TO SCHEDULE AN APPOINTMENT FOR FOLLOW UP. IF YOU DO NOT HAVE A PRIMARY DOCTOR YOU CAN CALL OUR PHYSICIAN REFERRAL HOTLINE AT IF YOU CAN NOT AFFORD TO SEE A PHYSICIAN YOU CAN CHOSE FROM THE FOLLOWING [facility]LY [facility], [facility] CLINICS: [facility] [address] [facility] [address] [facility]. [facility] [address] [facility] [address] [facility] [address] [facility]. [facility]. [address] JOSEPH SALGUERO MD Apr 28, 2018 22:33
[2018-04-28] MEDS ORDERED: LISI-471 PO (22:38)
[2018-04-28] MEDS ORDERED: METF-849 PO (22:38)
[2018-04-28 22:59] VITALS: BP 152/89; PULSE 82; RESP 18
== END 2018-04-28 23:11 | disposition home or self-care (01) ==
LOC: E/R 17:33
DX: E11.65 Type 2 diabetes mellitus with hyperglycemia (principal); I10 Essential (primary) hypertension; Z79.84 Long term (current) use of oral hypoglycemic drugs; Z87.891 Personal history of nicotine dependence; Z91.14 Patient's other noncompliance with medication regimen
CPT/HCPCS: 82962; 93005; Z7502; Z7610

== ENCOUNTER 2018-07-01 21:59 | Emergency (ER) | payer OTHER ==
[~2018-07-01] VITALS: Ht 160 cm; Wt 80.8 kg
[~2018-07-01 21:59] MED LIST changes: -AUG875 PO; -CEPH-443 PO; -CLOT21CR7 VAG; -CLOT30CR24 TOP; -CLOT45CR19 VAG; -FLUC150T PO; -HYDR-3498 PO; -IBUP-1542 PO; -IBUP-1561 PO; -KET2CR15 TOP; -METF500T PO; -METR70GE15 VAG; -MICO24CM3 VAG; -MTF1000T PO; -NAPR-985 PO; -PHEN-537 PO; -PHEN-538 PO; -PROM6.25 PO; -SULF1TAB31 PO; -ZOF8 PO
[2018-07-01 22:12] VITALS: Ht 160 cm; Wt 80.8 kg
[2018-07-02] MEDS ORDERED: SOD CHLORIDE 0.9% 1,000 ML IV STA (00:43)
[2018-07-02] MEDS ORDERED: INSULIN REGULAR, HUMAN 100 UNIT/1 ML 3ML VIAL SC ONE (01:00)
[2018-07-02] MEDS ORDERED: CEFTRIAXONE 1 GM/50 ML (PMX) 50 ML IVPB ONE (02:00)
[2018-07-02] MEDS ORDERED: SOD CHLORIDE 0.9% 1,000 ML IV ONE (02:00)
--- NOTE | 2018-07-02 04:38 | ERD ---
ER Documentation Chief Complaint Chief Complaint FREQUENT URINATION, BLOOD SUGAR 597. HPI This is a 48-year-old female with a past medical history of hypertension, diabetes on metformin, noncompliant on her medicines over the last 3 weeks due to running out, now presenting with the proximally 3 weeks of increased urinary frequency, dry mouth and feelings of dehydration. The patient does not endorse any nausea or vomiting. She has not been confused. She does not endorse any abdominal pain. She has not had any diarrhea. The patient denies feeling sick recently. The patient denies fever or chills. The patient has had no headache or vision changes. The patient does not endorse neck or back pain. The patient denies lightheadedness or dizziness. The patient has had no chest pain or trouble breathing. The patient has had no focal deficits. The patient has had no weakness or numbness or tingling to the face or extremities. ROS All systems reviewed and are negative except as per history of present illness. Medications Home Meds Active Scripts Lisinopril* (Lisinopril*) 20 Mg Tablet, 20 MG PO DAILY, #14 TAB Prov:JOSEPH ADORNO MD 04/28/18 Metformin* (Glucophage*) 500 Mg Tab, 500 MG PO BID, #28 TAB Prov:JOSEPH ADORNO MD 04/28/18 Lisinopril* (Lisinopril*) 20 Mg Tablet, 20 MG PO DAILY, #30 TAB Prov:MAGO CARIAS 06/02/17 Glipizide* (Glipizide*) 5 Mg Tablet, 5 MG PO BID for 30 Days, TAB Prov:CHANCE VARELA MD 07/23/15 Reported Medications Metformin Hcl* (Metformin Hcl*) 1,000 Mg Tablet, 1000 MG PO BID, TAB 07/24/13 Allergies Allergies: Coded Allergies: No Known Allergy (Unverified , NONE, 04/28/18) PMhx/Soc History of Surgery: No Anesthesia Reaction: No Hx Neurological Disorder: No Hx Respiratory Disorders: No Hx Cardiac Disorders: No (HTN) Hx Psychiatric Problems: No Hx Miscellaneous Medical Probl: Yes (DM type 2) Hx Alcohol Use: No Hx Substance Use: No Hx Tobacco Use: Yes (1 PACK Q2 DAYS, quit) Smoking Status: Former smoker FmHx Family History: diabetes Physical Exam Vitals Vital Signs Date Temp Pulse Resp B/P (MAP) Pulse Ox O2 O2 Flow FiO2 Time Delivery Rate 07/02/18 74 16 124/78 96 Room Air 04:29 (93) 07/02/18 72 16 137/65 96 Room Air 02:30 (89) 07/01/18 97.8 78 18 138/81 96 22:12 (100) Physical Exam Const: No apparent distress, well-developed, well-nourished Head: Normocephalic, Atraumatic Eyes: Normal Conjunctiva. Extraocular movements intact. Pupils equal, round and reactive to light ENT: Normal External Ears, Nose and Mouth. Neck: Full range of motion. No meningismus. Resp: Clear to auscultation bilaterally, No wheezes, rales or rhonchi Cardio: Regular rate and rhythm. No murmurs, rubs or gallops Abd: Obese. Soft, non tender, non distended. Normal bowel sounds Skin: No petechiae or rashes Back: No midline tenderness. No CVA tenderness Ext: No cyanosis, or edema Neur: Awake and alert, oriented 4. Cranial nerves intact. No facial droop. Normal strength, sensation and coordination. Psych: Normal Mood and Affect Result Diagram: 07/02/18 0110 07/02/18 0110 Results 24 hrs Laboratory Tests Test 07/01/18 22:10 07/02/18 01:09 07/02/18 01:10 07/02/18 03:48 Bedside Glucose 592 mg/dL 522 mg/dL 365 mg/dL White Blood Count 7.6 10^3/ul Red Blood Count 5.04 10^6/ul Hemoglobin 14.2 g/dl Hematocrit 40.9 % Mean Corpuscular 81.2 fl Volume Mean Corpuscular 28.2 pg Hemoglobin Mean Corpuscular 34.7 g/dl Hemoglobin Concent Red Cell 12.2 % Distribution Width Platelet Count 166 10^3/UL Mean Platelet 12.1 fl Volume Immature 0.400 % Granulocytes % Neutrophils % 49.9 % Lymphocytes % 41.5 % Monocytes % 6.5 % Eosinophils % 1.3 % Basophils % 0.4 % Nucleated Red 0.0 /100WBC Blood Cells % Immature 0.030 10^3/ul Granulocytes # Neutrophils # 3.8 10^3/ul Lymphocytes # 3.1 10^3/ul Monocytes # 0.5 10^3/ul Eosinophils # 0.1 10^3/ul Basophils # 0.0 10^3/ul Nucleated Red 0.0 10^3/ul Blood Cells # Urine Color COLORLESS Urine Clarity CLEAR Urine pH 6.0 Urine Specific 1.033 [place] Urine Ketones NEGATIVE mg/dL Urine Nitrite NEGATIVE mg/dL Urine Bilirubin NEGATIVE mg/dL Urine Urobilinogen NEGATIVE mg/dL Urine Leukocyte TRACE Herrera/ul Esterase Urine Microscopic 0 /HPF RBC Urine Microscopic 14 /HPF WBC Urine Hemoglobin NEGATIVE mg/dL Urine Glucose 3+ mg/dL Urine Total NEGATIVE mg/dl Protein Sodium Level 131 mmol/L Potassium Level 4.3 mmol/L Chloride Level 92 mmol/L Carbon Dioxide 27 mmol/L Level Anion Gap 12 Blood Urea 22 mg/dl Nitrogen Creatinine 0.56 mg/dl Est Glomerular > 60 mL/min Filtrat Rate mL/min Glucose Level 570 mg/dl Calcium Level 9.3 mg/dl Total Bilirubin 0.3 mg/dl Direct Bilirubin 0.00 mg/dl Indirect Bilirubin 0.3 mg/dl Aspartate Amino 18 IU/L Transf (AST/SGOT) Alanine 25 IU/L Aminotransferase ( ALT/SGPT) Alkaline 140 IU/L Phosphatase Total Protein 7.1 g/dl Albumin 4.2 g/dl Globulin 2.90 g/dl Albumin/Globulin 1.44 Ratio Lipase 521 U/L Current Medications Medications Dose Sig/Chava Start Time Status Last (Trade) Ordered Route PRN Stop Time Admin Dose Reason Admin Sodium 1,000 ml @ Q1H STAT 07/02/18 DC 07/02/18 Chloride 1,000 mls/hr IV 00:43 01:13 07/02/18 01:42 Insulin 8 unit ONCE ONCE 07/02/18 DC 07/02/18 Human SC 01:00 01:25 Regular 07/02/18 01:01 (Humulin R) Sodium 1,000 ml @ Q1H ONCE 07/02/18 DC 07/02/18 Chloride 1,000 mls/hr IV 02:00 02:01 07/02/18 02:59 Ceftriaxone 50 ml @ ONCE ONCE 07/02/18 DC 07/02/18 Sodium 100 mls/hr IVPB 02:00 02:01 07/02/18 02:29 Procedures/MDM MDM The patient's presentation warrants further investigation. Previous medical records, if available, were reviewed. LABS The patient's laboratory testing was obtained and reviewed. No emergent treatment was required unless described below. CBC: No E/o systemic infection or severe anemia or thrombocytopenia Chemistry: No E/o severe acidosis or alkalosis or renal failure or liver disease or diabetic ketoacidosis. Elevated BUN, likely related to dehydration. Mild hyponatremia, not emergent. Lipase: Elevated, but not 3 times normal, low clinical suspicion for pancreatitis. Urine: E/o acute infection. No hematuria TREATMENT/DISPOSITION The patient presents for increased urinary frequency. The patient does have evidence of urinary tract infection. She is given a dose of Rocephin and will require outpatient therapy. The patient is also hyperglycemic. There is no evidence of DKA. The patient does appear dehydrated. She was given IV fluids in addition to insulin in the emergency department with significant improvement of her blood sugar. The patient reports noncompliance with her medications due to running out. I will give the patient a refill of her medication. She understands the importance of following up with her doctor. DISCHARGE Upon reevaluation of the patient, symptoms have improved. No emergent diagnoses were identified. At this time, I feel that the patient stable for discharge. The patient was instructed to follow-up with a primary care physician in 1-3 days. The patient will be given strict precautions with which to return to the emergency department. Prescriptions: Metformin, Keflex The patient's blood pressure was elevated at greater than 120/80 while in the emergency department. The patient was otherwise stable with no evidence of hypertensive urgency or emergency. The patient does not require admission for blood pressure control. I have discussed with the patient the risks of hypertension. I have instructed the patient to return to the ER for any new or worsening symptoms including chest pain, shortness of breath, headache, blurred vision, confusion, nausea, vomiting or LOC. I have advised the patient to follow up with the primary care physician for outpatient monitoring and treatment for hypertension in 1-3 days. Disclaimer: Inadvertent spelling and grammatical errors are likely due to EHR/dictation software use and do not reflect on the overall quality of patient care. Note that the electronic time recorded on this note does not necessarily reflect the actual time of the patient encounter. Departure Diagnosis: Primary Impression: Diabetes type 2, uncontrolled Glycemic state: with hyperglycemia Qualified Codes: E11.65 - Type 2 diabetes mellitus with hyperglycemia Additional Impressions: Hyperglycemia UTI (urinary tract infection) Urinary tract infection type: acute cystitis Hematuria presence: without hematuria Qualified Codes: N30.00 - Acute cystitis without hematuria Condition: Stable Patient Instructions: Hyperglycemia (High Blood Sugar), Understanding Urinary Tract Infections (UTIs) Additional Instructions: Thank you for for coming to [facility] for your care today. Please ask your nurse or provider if you have questions about your care today and do not leave until all your questions have been answered. Please use any medications given as directed and follow-up with your doctor (or the doctor you were referred to) in the next 1-3 days. If you do not have a primary care doctor you may follow up at the [facility] (listed below). You may also use motrin and tylenol as needed for fever and/or pain unless instructed otherwise by your provider or nurse. Indications for more urgent follow-up have been discussed, but you may return to the Emergency Department at ANY time for any worrisome or worsening symptoms. If you have abdominal pain, please know that no test or exam you received is perfect and you should follow up within 8 hours for continued pain. If you had any imaging studies today, such as an X-Ray or CT Scan, these studies will be reviewed later by a radiologist. You will be called if there are important findings that were not identified today, so make sure the contact information you provided at registration is correct. If you received any narcotic pain control medicine today, such as Vicodin, Morphine or Dilaudid, your coordination and judgment may be affected for a number of hours. Please do not drive or operate heavy machinery, and you may want someone to assist you at home. If you were given a prescription for narcotic medication, be aware that it is very addictive- use sparingly and only if necessary. PLEASE SEEK FURTHER EVALUATION AND MANAGEMENT AT YOUR DOCTORS OFFICE WITHIN THE NEXT 1-3 DAYS. IT IS YOUR RESPONSIBILITY TO MAKE AN APPOINTMENT FOR FOLOW-UP CARE. IF YOU HAVE A PRIMARY DOCTOR, PLEASE CALL THEIR OFFICE TO SCHEDULE AN APPOINTMENT FOR FOLLOW UP. IF YOU DO NOT HAVE A PRIMARY DOCTOR YOU CAN CALL OUR PHYSICIAN REFERRAL HOTLINE AT IF YOU CAN NOT AFFORD TO SEE A PHYSICIAN YOU CAN CHOSE FROM THE FOLLOWING [facility]: [facility] [address] [facility] [facility] [address] [employer] [facility] [address] [facility] [address] [facility] [address] [facility]. [facility]. [address] JOSEPH SALGUERO MD Jul 02, 2018 04:38
[2018-07-02] MEDS ORDERED: CEPH-443 PO (04:39)
[2018-07-02] MEDS ORDERED: MTF1000T PO (04:39)
[2018-07-02 05:02] VITALS: BP 128/78; PULSE 77; RESP 16
== END 2018-07-02 05:02 | disposition home or self-care (01) ==
LOC: E/R 21:59
DX: N30.00 Acute cystitis without hematuria (principal); E11.65 Type 2 diabetes mellitus with hyperglycemia; I10 Essential (primary) hypertension; Z79.4 Long term (current) use of insulin; Z87.891 Personal history of nicotine dependence
CPT/HCPCS: 36415; 80053; 81001; 82962; 83690; 85025; 96372; 96374; J0696; J7030; Z7502; Z7610

== ENCOUNTER 2018-08-03 08:17 | Emergency (ER) | payer OTHER ==
[~2018-08-03] VITALS: Ht 157.5 cm; Wt 79.2 kg
[~2018-08-03 08:17] MED LIST changes: +CEPH-443 PO; +MTF1000T PO
[2018-08-03 08:30] VITALS: BP 120/63; PULSE 71; RESP 19; Ht 157.5 cm; Wt 79.2 kg
[2018-08-03] MEDS ORDERED: CEPH-443 PO (10:36)
[2018-08-03] MEDS ORDERED: MTF1000T PO (10:36)
[2018-08-03] MEDS ORDERED: CEPHALEXIN 500 MG CAP PO ONE (11:00)
--- NOTE | 2018-08-03 12:21 | ERD ---
ER Documentation Chief Complaint Chief Complaint PAINFUL URINATION HPI This is a 48-year-old female patient presents emergency room with complaint of painful urination x1 year. States over the last week she has had increased in frequency. No fevers, no flank pain. Patient states that she has not been taking her metformin and believes that her increased sugar is causing her urinary tract infections. States she lost her insurance card and was any unable to fill her metformin. Denies vaginal discharge. ROS All systems reviewed and are negative except as per history of present illness. Medications Home Meds Active Scripts Metformin* (Glucophage*) 1,000 Mg Tablet, 1000 MG PO BID for 30 Days, #60 TAB Prov:CHRISTOPHER SUN NP 08/03/18 Cephalexin* (Keflex*) 500 Mg Capsule, 500 MG PO BID for CYSTITIS for 7 Days, #14 CAP Prov:CHRISTOPHER SUN NP 08/03/18 Metformin* (Glucophage*) 1,000 Mg Tablet, 1000 MG PO BID, #30 TAB Prov:JOSEPH ADORNO MD 07/02/18 Cephalexin* (Keflex*) 500 Mg Capsule, 500 MG PO BID for 7 Days, CAP Prov:JOSEPH ADORNO MD 07/02/18 Lisinopril* (Lisinopril*) 20 Mg Tablet, 20 MG PO DAILY, #14 TAB Prov:JOSEPH ADORNO MD 04/28/18 Metformin* (Glucophage*) 500 Mg Tab, 500 MG PO BID, #28 TAB Prov:JOSEPH ADORNO MD 04/28/18 Lisinopril* (Lisinopril*) 20 Mg Tablet, 20 MG PO DAILY, #30 TAB Prov:MAGO CARIAS 06/02/17 Glipizide* (Glipizide*) 5 Mg Tablet, 5 MG PO BID for 30 Days, TAB Prov:CHANCE VARELA MD 07/23/15 Reported Medications Metformin Hcl* (Metformin Hcl*) 1,000 Mg Tablet, 1000 MG PO BID, TAB 07/24/13 Allergies Allergies: Coded Allergies: No Known Allergy (Unverified , NONE, 04/28/18) PMhx/Soc History of Surgery: No Anesthesia Reaction: No Hx Neurological Disorder: No Hx Respiratory Disorders: No Hx Cardiac Disorders: No (HTN) Hx Psychiatric Problems: No Hx Miscellaneous Medical Probl: Yes (DM type 2) Hx Alcohol Use: No Hx Substance Use: No Hx Tobacco Use: Yes (1 PACK Q2 DAYS, quit) Smoking Status: Former smoker FmHx Family History: diabetes Physical Exam Vitals Vital Signs Date Temp Pulse Resp B/P (MAP) Pulse Ox O2 O2 Flow FiO2 Time Delivery Rate 08/03/18 98.6 71 19 120/63 98 08:30 (82) Physical Exam Const: No acute distress Head: Atraumatic Eyes: Normal Conjunctiva ENT: Normal External Ears, Nose and Mouth. Neck: Full range of motion. No meningismus. No lymphadenopathy Resp: Clear to auscultation bilaterally, no wheezing Cardio: Regular rate and rhythm, no murmurs Abd: Soft, non tender, non distended. Normal bowel sounds Skin: No petechiae or rashes Back: No midline or flank tenderness, no CVT Ext: No cyanosis, or edema Neur: Awake and alert Psych: Normal Mood and Affect Results 24 hrs Laboratory Tests Test 08/03/18 09:22 08/03/18 09:23 08/03/18 09:26 Bedside Glucose 365 mg/dL POC Beta HCG, Qualitative NEGATIVE Urine Color YELLOW Urine Clarity CLEAR Urine pH 5.0 Urine Specific [place] 1.036 Urine Ketones 1+ mg/dL Urine Nitrite POSITIVE mg/dL Urine Bilirubin NEGATIVE mg/dL Urine Urobilinogen NEGATIVE mg/dL Urine Leukocyte Esterase NEGATIVE Herrera/ul Urine Microscopic RBC 2 /HPF Urine Microscopic WBC 8 /HPF Urine Bacteria FEW /HPF Urine Hemoglobin 1+ mg/dL Urine Glucose 3+ mg/dL Urine Total Protein NEGATIVE mg/dl Current Medications Medications Dose Sig/Chava Start Time Status Last (Trade) Ordered Route PRN Stop Time Admin Dose Reason Admin Cephalexin 500 mg ONCE ONCE 08/03/18 DC 08/03/18 (Keflex) PO 11:00 10:43 08/03/18 11:00 Procedures/MDM This is a 48-year-old female patient presents emergency room with complaint of painful urination x1 year. There is low suspicion for pyelonephritis, vaginitis, STI, or interstitial cystitis due to absence of clinical findings that would support a diagnosis more serious than uncomplicated UTI. These diagnoses have been considered and excluded clinically. Nonetheless, it is understood by both the patient and provider that no clinical or diagnostic assessment can entirely exclude such diseases. Antibiotic treatment has been initiated today, urine sent for culture. Patient states plan for close follow-up with primary care provider. Patient has been instructed on signs and symptoms of concern or with evolving condition with strict instructions to return to ED for reevaluation. Departure Diagnosis: Primary Impression: Diabetes Additional Impression: UTI (urinary tract infection) Condition: Stable Patient Instructions: Diabetes and Heart Disease, Understanding Urinary Tract Infections (UTIs) Referrals: [facility] Additional Instructions: Thank you very much for allowing us to participate in your care. Your health and safety is our top priority at [facility]. Call your primary care doctor TOMORROW for an appointment during the next 2-4 days and bring all the information and medications prescribed. Have prescriptions filled and follow precisely the directions on the label. If the symptoms get worse and your provider is unavailable, return to the Emergency Department immediately. FOLLOW-UP WITH YOUR DOCTOR MARC! RESUME THE METFORMIN TODAY. INCREASE HYDRATION TO 1-2 L/DAY. COMPLETE ENTIRE COURSE OF ANTIBIOTIC. CHRISTOPHER SUN NP August 03, 2018 12:21
== END 2018-08-03 10:57 | disposition home or self-care (01) ==
LOC: FTE 08:17
DX: N39.0 Urinary tract infection, site not specified (principal); E11.9 Type 2 diabetes mellitus without complications; I10 Essential (primary) hypertension; Z79.84 Long term (current) use of oral hypoglycemic drugs; Z87.891 Personal history of nicotine dependence
CPT/HCPCS: 81001; 81025; 82962; 87086; Z7502; Z7610; 99283

== ENCOUNTER 2018-09-20 07:36 | Emergency (ER) | payer OTHER ==
[~2018-09-20] VITALS: Wt 84.1 kg
[2018-09-20 07:43] VITALS: BP 126/78; PULSE 78; RESP 20
[2018-09-20] MEDS ORDERED: MICO100S4 VG (08:00)
[2018-09-20] MEDS ORDERED: FLUC150T PO (08:00)
[2018-09-20] MEDS ORDERED: MTF1000T PO (08:26)
--- NOTE | 2018-09-20 10:18 | ERD ---
ER Documentation Chief Complaint Chief Complaint vaginal itchiness x3 wks HPI 48-year-old female presenting with vaginal itching x2 weeks. Patient states she is had this in the past and has used medication alleviates her. She has a history of diabetes and is requesting refill of medications today. Patient has not seen her [facility] and denies any dysuria. Patient has no vaginal discharge. Denies any abdominal pain. Denies fever. Denies back pain. NKDA. Surgical history . Social history smoker quit smoking. ROS All systems reviewed and are negative except as per history of present illness. Medications Home Meds Active Scripts Metformin* (Glucophage*) 1,000 Mg Tablet, 1000 MG PO BID, #60 TAB Prov:JOSEPH SPAULDING PA-C 09/20/18 Fluconazole* (Diflucan*) 150 Mg Tablet, 150 MG PO ONCE, #1 TAB Prov:JOSEPH SPAULDING PA-C 09/20/18 Miconazole Nitrate (Miconazole 7) 100 Mg Supp.vag, 100 MG VG QHS, #7 SUPP.VAG Prov:JOSEPH SPAULDING PA-C 09/20/18 Metformin* (Glucophage*) 1,000 Mg Tablet, 1000 MG PO BID for 30 Days, #60 TAB Prov:CHRISTOPHER SUN NP 08/03/18 Cephalexin* (Keflex*) 500 Mg Capsule, 500 MG PO BID for CYSTITIS for 7 Days, #14 CAP Prov:CHRISTOPHER SUN NP 08/03/18 Metformin* (Glucophage*) 1,000 Mg Tablet, 1000 MG PO BID, #30 TAB Prov:JOSEPH ADORNO MD 07/02/18 Cephalexin* (Keflex*) 500 Mg Capsule, 500 MG PO BID for 7 Days, CAP Prov:JOSEPH ADORNO MD 07/02/18 Lisinopril* (Lisinopril*) 20 Mg Tablet, 20 MG PO DAILY, #14 TAB Prov:JOSEPH ADORNO MD 04/28/18 Metformin* (Glucophage*) 500 Mg Tab, 500 MG PO BID, #28 TAB Prov:JOSEPH ADORNO MD 04/28/18 Lisinopril* (Lisinopril*) 20 Mg Tablet, 20 MG PO DAILY, #30 TAB Prov:MAGO CARIAS 06/02/17 Glipizide* (Glipizide*) 5 Mg Tablet, 5 MG PO BID for 30 Days, TAB Prov:CHANCE VARELA MD 07/23/15 Reported Medications Metformin Hcl* (Metformin Hcl*) 1,000 Mg Tablet, 1000 MG PO BID, TAB 07/24/13 Allergies Allergies: Coded Allergies: No Known Allergy (Unverified , NONE, 09/20/18) PMhx/Soc History of Surgery: No Anesthesia Reaction: No Hx Neurological Disorder: No Hx Respiratory Disorders: No Hx Cardiac Disorders: No (HTN) Hx Psychiatric Problems: No Hx Miscellaneous Medical Probl: No Hx Alcohol Use: No Hx Substance Use: No Hx Tobacco Use: Yes Smoking Status: Former smoker FmHx Family History: No diabetes, No coronary disease, No other Physical Exam Vitals Vital Signs Date Temp Pulse Resp B/P (MAP) Pulse Ox O2 O2 Flow FiO2 Time Delivery Rate 09/20/18 97.7 78 20 126/78 98 07:43 (94) Physical Exam GENERAL: The patient is well-appearing, well-nourished, in no acute distress HEENT: Atraumatic. Conjunctivae are pink. Pupils equal, round, and reactive to light. There is no scleral icterus. Tympanic membranes clear bilaterally. Oropharynx clear. CHEST: Clear to auscultation bilaterally. There are no rales, wheezes or rh onchi. HEART: Regular rate and rhythm. No murmurs, clicks, rubs or gallops. ABDOMEN:Soft, nontender and nondistended. Good bowel sounds. No rebound or guarding. No gross peritonitis. No gross organomegaly or masses. BACK: No midline or flank tenderness. Procedures/MDM MDM: 48-year-old female presenting with vaginal irritation. Patient will be treated with antifungal medications. I have low suspicion for pelvic emergency or acute abdominal emergency. I have low suspicion for pelvic infection. Patient is discharged with strict your precautions and supportive medications. Patient is told to follow-up with primary care within 1 to 2 days for close evaluation. Patient is told symptoms change or worsen to return immediately to the ER. All questions answered at discharge Departure Diagnosis: Primary Impression: Yeast infection Condition: Stable Patient Instructions: Vaginal Infection: Yeast (Candidiasis) Referrals: [facility] [place] [id number] [address] OFFICE FAX , [facility] [address] [place] [address] [address] MONTE, [place] [address] [place] [address] [address] [facility]UE[facility], [facility] [address] [facility], [address] [address] [address] GEORGE, [facility] [address] [facility], [place] [address] [facility] [address] [place] [address] [facility] [address] - SHANELL DAVALOS [address] [address] , [place] [address] [facility]. [address], [place] [address] [address] DON [facility] [address] [place], [place] [id number] Additional Instructions: FOLLOW UP WITH YOUR PRIMARY CARE PHYSICIAN TOMORROW.Return to this facility if you are not improving as expected. JOSEPH SPAULDING PA-C Sep 20, 2018 10:18
== END 2018-09-20 08:20 | disposition home or self-care (01) ==
LOC: FTE 07:36
DX: B37.9 Candidiasis, unspecified (principal); I10 Essential (primary) hypertension; E11.9 Type 2 diabetes mellitus without complications; Z79.84 Long term (current) use of oral hypoglycemic drugs; Z87.891 Personal history of nicotine dependence
CPT/HCPCS: 99283

== ENCOUNTER 2018-11-30 04:39 | Emergency (ER) | payer OTHER ==
[~2018-11-30] VITALS: Ht 165.1 cm; Wt 81.6 kg
[~2018-11-30 04:39] MED LIST changes: +BLOO-432 MC; +BLOO1EAC85 MC; +FLUC150T PO; +MICO100S4 VG; +NAPR-985 PO; +PANT40TA3 PO; +[UNRECOGNIZED DRUG - CODE] MC
[2018-11-30 04:46] VITALS: Ht 165.1 cm; Wt 81.6 kg
[2018-11-30] MEDS ORDERED: SOD CHLORIDE 0.9% 820 ML IV ONE (05:30)
[2018-11-30] MEDS ORDERED: PANTOPRAZOLE 40 MG INJ IV ONE (05:30)
[2018-11-30] MEDS ORDERED: KETOROLAC 30 MG INJ IV STA (05:58)
[2018-11-30] MEDS ORDERED: INSULIN LISPRO 100 UNIT/ML VIAL SC ONE ×2 (06:00→06:30)
[2018-11-30 06:07] VITALS: BP 134/82; PULSE 79; RESP 15
[2018-11-30] MEDS ORDERED: ACCU-CHEK XX ONE ×2 (08:00→08:30)
== END 2018-11-30 06:39 | disposition home or self-care (01) ==
LOC: E/R 04:39
DX: E11.65 Type 2 diabetes mellitus with hyperglycemia (principal); I10 Essential (primary) hypertension; B37.3 Candidiasis of vulva and vagina; N89.8 Other specified noninflammatory disorders of vagina; Z79.84 Long term (current) use of oral hypoglycemic drugs; Z87.891 Personal history of nicotine dependence
CPT/HCPCS: 36415; 80048; 81003; 81025; 82803; 82962; 83735; 84100; 84484; 85025; 93005; 96361; 96372; 96374; 96375; C9113; J1815; J1885; J7030; Z7502